=== PATIENT | female | born 1985 | race Caucasian/White ===

== ENCOUNTER 2018-11-15 06:09 | Day surgery (SDC) | payer OTHER ==
[~2018-11-15] VITALS: Ht 157.5 cm; Wt 61.4 kg
[~2018-11-15 06:09] MED LIST: SODIUM CHLORIDE 0.9% 1,000 ML IV ONE
[2018-11-15] MEDS ORDERED: BENZOCAINE 20% 50 MCG/SPRAY 57 GM TP ONE (06:10)
[2018-11-15] MEDS ORDERED: LIDOCAINE 2% 30 ML JELLY TP ONE (06:10)
[2018-11-15] MEDS ORDERED: LIDOCAINE 4% 50 ML SOLUTION TP ONE (06:10)
[2018-11-15] MEDS ORDERED: ALBUTEROL SULFATE 2.5 MG/0.5 ML NEB SOLUTION NEB ONE (06:10)
[2018-11-15] MEDS ORDERED: SODIUM CHLORIDE 0.9% 1,000 ML IV ONE (06:30)
[2018-11-15] MEDS ORDERED: OMEP20 PO (07:10)
[2018-11-15] MEDS ORDERED: DIPH25 PO (07:10)
[2018-11-15] MEDS ORDERED: IBUP-2354 PO (07:10)
[2018-11-15] MEDS ORDERED: OXYM-17 NASAL (07:10)
[2018-11-15] MEDS ORDERED: MIDAZOLAM HCL 2 MG/2 ML VIAL ONE (07:53)
[2018-11-15] MEDS ORDERED: FentaNYL CITRATE-PF 100 MCG/2 ML VIAL ONE (07:54)
[2018-11-15] MEDS ORDERED: MethylPREDNISolone SOD SUCC 125 MG/2 ML VIAL IVP ONE (08:45)
[2018-11-15] MEDS ORDERED: ONDANSETRON HCL 4 MG/2 ML VIAL ONE (09:22)
[2018-11-15] MEDS ORDERED: METOCLOPRAMIDE HCL 5 MG/ML 2 ML VIAL ONE (09:29)
[2018-11-15] MEDS ORDERED: MethylPREDNISolone SOD SUCC 125 MG/2 ML VIAL ONE (09:33)
[2018-11-15] MEDS ORDERED: NALOXONE HCL 0.4 MG/ML VIAL ONE (09:42)
[2018-11-15] MEDS ORDERED: PROMETHAZINE HCL 25 MG TABLET ONE (11:30)
[2018-11-15] MEDS ORDERED: PROMETHAZINE HCL 25 MG TABLET PO ONE (11:30)
[2018-11-15] MEDS ORDERED: OXYGEN THERAPY IH SCH (20:00)
== END 2018-11-15 11:55 | disposition home or self-care (01) ==
LOC: SURGERY 06:09
PROVIDERS: ATTEND Internal Medicine Critical Care Medicine
DX: J38.4 Edema of larynx (principal); B37.0 Candidal stomatitis
CPT/HCPCS: 31623; 31624; 87015; 87070; 87101; 87205; 87206; 87220; 88108; 88312; J2250; J2310; J2405; J2765; J2930; J3010; J7030